=== PATIENT | male | born 1945 | race Caucasian/White ===

== ENCOUNTER → 2020-10-19 15:39 | Outpatient (BNVA) | payer OTHER, SELFPAY | PROVIDERS: Referring Provider Family Medicine; Visit Provider Specialist | DX: R41.3 Other amnesia (principal); F32.9 Major depressive disorder, single episode, unspecified | CPT/HCPCS: 96116; 99204 ==

== ENCOUNTER 2022-11-15 10:54 | Emergency (ER) | payer OTHER, SELFPAY ==
[2022-11-15 11:03] VITALS: BP 164/84; PULSE 65; RESP 18; TEMP 37.1; O2SAT 100; BMI 28.1
--- NOTE | 2022-11-15 11:17 | ED_ITS ---
HPI - Back Pain/Injury General: Chief Complaint: Back Pain/Injury Stated Complaint: Low back pain Time Seen by Provider: 11/15/22 11:08 Source: patient Mode of arrival: ambulatory Limitations: no limitations History of Present Illness: Patient is a 77-year-old male who presents to ED today with complaint of lower back pain. Patient states he has had back pain for many many months and states it bothers him on a daily basis. He [facility] He states yesterday he was moving heavy boxes and feels like he exacerbated his pain. Patient states pain seems to radiate down into his right leg although this is chronic for his pain. Patient states at home he treats his discomfort with gabapentin. Patient reports chronic urinary incontinence stating he has had to wear adult briefs for almost a year now. He is not reporting any issues with defecation. Patient is ambulatory without assistance. MD elicited complaint: back pain and back injury Pertinent past history: prior back pain Onset (ago): month(s) Timing: constant Severity: moderate Similar Symptoms Previously: Yes Location: lumbar spine Radiation: right leg below the knee Exacerbating factors: movement, walking and lifting Relieving factors: none Context: while lifting (yesterday-heavy boxes) Associated symptoms: Reports no associated symptoms and other (chronic urinary incontinence); Deny abdominal pain, chills, dysuria, fever(s) or hematuria Work related injury: No Review of Systems Const: Denies: fever(s), chills or body aches Card: Denies: chest pain Resp: Denies: dyspnea GI: Denies: abdominal pain : Denies: flank pain, dysuria or hematuria Musc: Reports: back pain; Denies: neck pain, extremity pain, extremity swelling, joint pain or joint swelling Skin/Breast: Denies: rash Neuro: Denies: headache(s), numbness in extremities, weakness in extremities or sensory changes PFSH ED PFSH: Social History Smoking and tobacco status: never smoked Alcohol intake: former Substance/Drug Use: never Physical Exam Const: COMMON NORMALS: no acute distress, average body habitus, patient oriented x3, no limitations, healthy appearing, alert and well nourished GENERAL APPEARANCE: cooperative ORIENTATION/CONSCIOUSNESS: Yes awake, Yes oriented to person, Yes oriented to place and Yes oriented to time GI: COMMON NORMALS: Normal to inspection, nondistended, normoactive bowel sounds present, Soft to palpation, non-tender, No hepatosplenomegaly present and no masses PALPATION: Yes Soft to palpation and Yes No hepatosplenomegaly present : COMMON NORMALS: Yes no CVA tenderness BLADDER/KIDNEY EXAM: Yes no CVA tenderness Back/Pelvis: COMMON NORMALS: no CVA tenderness and thoracic and lumbar spine normal to inspection THORACIC SPINE/UPPER BACK: Yes normal to inspection, No thoracic spinal tenderness and No paraspinal muscle tenderness LUMBAR SPINE/LOWER BACK: Yes pain with ROM and Yes paraspinal muscle tenderness Lumbar paraspinal muscle tenderness: right PELVIS: Yes buttocks normal and Yes sciatic notch tenderness SACROILIAC JOINTS: Yes SI joint(s) abnormal SI joint details: tender to palpation (right) SACRUM: no tenderness COCCYX: no tenderness Extremity: COMMON NORMALS: normal to inspection, full ROM, capillary refill normal, no joint enlargement, no clubbing, cyanosis or edema, no calf tenderness and no pedal edema GENERAL: Yes normal exam except as noted Neuro: COMMON NORMALS: patient oriented x3, moves all extremities, no focal motor deficits and no sensory deficits noted SENSORIUM/ORIENTATION: Yes alert, Yes oriented to person, Yes oriented to place and Yes oriented to time MOTOR EXAM: 5/5 motor strength present throughout Course Vital Signs: Vital signs: Vital Signs Temperature 98.7 F 11/15/22 11:03 Pulse Rate 65 11/15/22 11:03 Respiratory Rate 18 11/15/22 11:03 Blood Pressure 164/84 11/15/22 11:03 Pulse Oximetry 100 11/15/22 11:03 Oxygen Delivery Me thod Room Air 11/15/22 11:03 MDM - Back Pain/Injury Medical Decision Making Patient here with acute on chronic back pain. Lumbar XR showing spondylolisthesis of L4 on L5 which might be causing some spinal canal stenosis. Recommend patient [facility]. He will be given meds for home to treat his discomfort over the next few days. Recommend he contact the [facility] upon discharge to schedule this follow-up appointment. Return ED precautions given. Labs Radiology Impressions Lumbar Spine X-Ray 11/15/22 11:17 IMPRESSION: 1. 1 cm spondylolisthesis of L4 on L5 which might cause spinal canal stenosis. 2. Osteopenia and degenerative changes. Dextroscoliosis. Discharge Plan Discharge Patient Disposition: Home Clinical Impression: Acute exacerbation of chronic low back pain Condition: Stable Prescriptions: New cyclobenzaprine 10 mg tablet 10 mg PO TID Qty: 14 0RF hydrocodone-acetaminophen 5-325 mg tablet 1 tab PO Q6H PRN (Reason: pain) Qty: 14 0RF Medrol (Devon) 4 mg tablets,dose pack See Rx Instructions .ROUTE .COMPLEX Qty: 21 0RF Rx Instructions: orally per package directions No Action atorvastatin 10 mg tablet 10 mg PO DAILY hydroxyzine HCl 10 mg tablet 10 mg PO TID PRN gabapentin 300 mg capsule 300 mg PO DAILY pantoprazole 40 mg tablet,delayed release (DR/EC) 40 mg PO DAILY loratadine 10 mg tablet 10 mg PO DAILY ropinirole 0.5 mg tablet 0.5 mg PO DAILY trazodone 100 mg tablet 100 mg PO DAILY paroxetine HCl 30 mg tablet 30 mg PO DAILY tamsulosin 0.4 mg capsule 0.4 mg PO DAILY cholecalciferol (vitamin D3) 125 mcg (5,000 unit) capsule 125 mcg PO DAILY donepezil 10 mg tablet 10 mg PO DAILY Qty: 90 3RF Discharge Orders: Discharge ED (Routine); Ordered 11/15/22 Ordered By: Sheela Foley Referrals: Josi Odonnell FNP [Primary Care Provider] - Patient Instructions: Back Pain (ED), Opioid Safety, Pain Management Activity Restrictions/Additional Instructions: As we discussed you need [facility] as you most likely need [facility] imaging as an outpatient for your lower back pain. There is no indication for emergent MRI imaging today. I will place you on medications to hopefully ease some of your discomfort over the next couple of days. Please contact the [facility] after discharge and schedule your follow-up appointment. Coding Level of Care Code ED [employer]or for Milena Rojas
--- NOTE | 2022-11-15 11:17 | XR_ITS ---
WS: [id number] Exam: XR lumbar spine 2-3V* [id number] Date/Time of Exam: 11/15/2022 11:30 AM Reason For Exam: pain No acute fracture or dislocation. 1 cm spondylolisthesis of L4 on L5 that might cause some spinal can al stenosis. Mild spondylosis. Mild degenerative disc thinning at all levels. Remaining posterior nicola ments are intact. Osteopenia. Mild dextroscoliosis. 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 XR/XR lumbar spine 2-3V* [id number] IMPRESSION: 1. 1 cm spondylolisthesis of L4 on L5 which might cause spinal canal stenosis. 2. Osteopenia and degenerative changes. Dextroscoliosis.
[2022-11-15] MEDS: orphenadrine 30 mg/mL Inj 2 mL 60 MG IM (12:05)
[2022-11-15] MEDS: ketorolac 30 mg/mL INJ 15 MG IM (12:05)
[2022-11-15] MEDS: dexamethasone 10 mg/mL INJ 8 MG IM (12:06)
[2022-11-15 13:40] VITALS: PULSE 65; RESP 16; O2SAT 100
== END 2022-11-15 13:42 | disposition home or self-care (01) ==
PROVIDERS: Emergency Provider Physician Assistant; PCP Nurse Practitioner
DX: M43.16 Spondylolisthesis, lumbar region (principal)
CPT/HCPCS: 72100; 96372; 99284; J1100; J1885; J2360

== ENCOUNTER → 2022-12-08 13:32 | Outpatient (BNVA) | payer OTHER, SELFPAY | PROVIDERS: PCP Nurse Practitioner; Referring Provider Family Medicine; Visit Provider Dermatology | DX: L57.0 Actinic keratosis (principal); L81.4 Other melanin hyperpigmentation; L57.8 Other skin changes due to chronic exposure to nonionizing radiation; L82.1 Other seborrheic keratosis; C44.319 Basal cell carcinoma of skin of other parts of face; Z85.828 Personal history of other malignant neoplasm of skin; Z85.820 Personal history of malignant melanoma of skin | CPT/HCPCS: 11102; 17000; 17003; 99203 ==

== ENCOUNTER 2022-12-13 15:10 | Outpatient (CLI) | payer OTHER, SELFPAY ==
--- NOTE | 2022-12-13 15:30 | MR_ITS ---
WS: [id number] MRI LUMBAR SPINE NONCONTRAST TECHNIQUE: Sagittal T1, T2 and STIR imaging. Axial T1 and T2 imaging. CLINICAL INFORMATION: LUMBAR RADICULOPATHY/ FLIP TO CITC COMPARISON: None. FINDINGS: Grade 1 anterolisthesis L4 on L5. Partially visualized tiny RIGHT subarticular protrusion R IGHT T11-T12 with narrowing of the RIGHT subarticular recess. This is only covered on the sagittal im aging. L1-L2: Mild disc bulging. Mild facet arthropathy. Spinal canal and foramen are patent. L2-L3: RIGHT pericentral and subarticular disc extrusion with slight inferior migration of disc mater ial. This results in severe central canal stenosis with impingement on the RIGHT greater than LEFT tr aversing L3 nerve roots. Mild RIGHT foraminal narrowing. Mild facet arthropathy. Extruded disc materi al measures approximately 6.3 mm in AP dimension. L3-L4: Mild disc bulging with moderate central canal stenosis. Moderate facet arthropathy ligament fl avum hypertrophy. Narrowing subarticular recess. Mild bilateral foraminal narrowing. L4-L5: Grade 1 anterolisthesis. Severe central canal stenosis due to disc bulging in combination with facet arthropathy ligament flavum hypertrophy. Impingement on traversing L5 nerve roots bilaterally. Moderate to advanced facet arthropathy. Foramen are patent. L5-S1: Mild annular bulging with slight effacement of ventral thecal sac. Slight contact of the trave rsing RIGHT greater than LEFT S1 nerve roots. Mild facet arthropathy. Adrenal glands are normal. Partially visualized bilateral renal cysts. Partially evaluated large T2 hyperintense lesion in the R IGHT hepatic lobe. No prior imaging at this facility. Recommend contrast-enhanced CT abdomen pelvis p ending further evaluation. This measures approximately 8 to 9 cm Small disc osteophyte complexes in the cervical spine ward assistant imaging worse at C6-C7 with contact of th e cervical cord and mild central canal stenosis. MR/MR lumbar spine wo con* [id number] IMPRESSION: 1. Mild lumbar curve. No acute compression. Grade 1 anterolisthesis L4 on L5. 2. RIGHT pericentral disc extrusion L2-L3 with inferior migration of disc mate rial into the RIGHT subarticular recess. This results in severe central canal s tenosis. Impingement traversing L3 nerve roots. 3. Moderate central canal stenosis L3-L4 and severe central canal stenosis L4- L5 due to disc bulging in combination with facet arthropathy and ligamentum fla vum hypertrophy. Grade 1 anterolisthesis L4 on L5. 4. Small RIGHT subarticular disc protrusion T11-T12 partially visualized. 5. Partially visualized cystic appearing large RIGHT hepatic lesion incomplete ly evaluated measuring 8-9 cm recommend further evaluation with contrast-enhanc ed CT abdomen pelvis
== END 2022-12-13 15:11 | disposition home or self-care (01) ==
LOC: RAD 15:13
PROVIDERS: PCP Nurse Practitioner
DX: Z01.89 Encounter for other specified special examinations (principal); M54.16 Radiculopathy, lumbar region; M51.26 Other intervertebral disc displacement, lumbar region; M48.061 Spinal stenosis, lumbar region without neurogenic claudication; M47.896 Other spondylosis, lumbar region
CPT/HCPCS: 72148

== ENCOUNTER 2023-01-03 11:41 | Outpatient (CLI) | payer OTHER, SELFPAY ==
--- NOTE | 2023-01-03 11:54 | US_ITS ---
WS: [id number] Exam: US renal BI* [id number] Date/Time of Exam: 01/03/2023 12:02 PM Reason For Exam: CHRONIC KIDNEY DZ STAGE 4/BENIGN PROSTATIC HYPERPLASIA There are small bilateral renal cysts are noted. Most of the cysts measure in the range of 1.3 to 1.5 cm at greatest diameter. No solid renal masses were noted. No sign of renal obstruction. The left ki dney measures 8.95 x 3.76 x 4.4 cm. Cortical thickness of the left kidney is 0.79 cm. The right kidne y measures 8.5 x 4.53 x 5 cm. Cortical thickness of the right kidney was 0.90 cm. A large cyst is not ed in the right lobe of the liver that measures slightly over 10 cm at greatest dimension. No obvious filling defects are noted in the urinary bladder. There is prosthetic hypertrophy. The prostate glan d measures 5.3 cm at greatest transverse diameter. US/US renal BI* [id number] IMPRESSION: 1. Several small bilateral renal cysts are noted. No solid renal masses or manjeet l obstruction identified. 2. Mild cortical atrophy of both kidneys. 3. Prominent cyst in the right lobe of the liver measuring slightly over 10 cm at greatest diameter. 4. Prostatic hypertrophy.
== END 2023-01-03 11:42 | disposition home or self-care (01) ==
LOC: RAD 11:43
PROVIDERS: PCP Nurse Practitioner; Visit Provider Internal Medicine Nephrology
DX: N18.4 Chronic kidney disease, stage 4 (severe) (principal); N40.0 Benign prostatic hyperplasia without lower urinary tract symptoms; N28.1 Cyst of kidney, acquired; N26.1 Atrophy of kidney (terminal)
CPT/HCPCS: 76770

== ENCOUNTER → 2023-01-10 08:57 | Outpatient (BNVA) | payer OTHER, SELFPAY | PROVIDERS: PCP Nurse Practitioner; Visit Provider Dermatology | DX: C44.319 Basal cell carcinoma of skin of other parts of face (principal) | CPT/HCPCS: 12052; 17311 ==

== ENCOUNTER 2023-02-13 20:00 | Outpatient (CLI) | payer OTHER, SELFPAY | END 2023-02-13 20:01 | disposition home or self-care (01) | LOC: SLEEP 02-14 05:56 | PROVIDERS: Visit Provider Family Medicine | DX: G47.33 Obstructive sleep apnea (adult) (pediatric) (principal) | CPT/HCPCS: 95811 ==